=== PATIENT | female | born 1990 | race Caucasian/White ===

== ENCOUNTER 2018-01-26 17:05 | Emergency (ER) | payer OTHER ==
[~2018-01-26] VITALS: Ht 157.5 cm; Wt 75.3 kg
[2018-01-26 17:16] VITALS: Ht 157.5 cm; Wt 75.3 kg
[2018-01-26 19:02] VITALS: BP 140/74
== END 2018-01-26 19:02 | disposition home or self-care (01) ==
LOC: ED 17:05
DX: M75.102 Unspecified rotator cuff tear or rupture of left shoulder, not specified as traumatic (principal); F41.9 Anxiety disorder, unspecified
CPT/HCPCS: J1885